=== PATIENT | female | born 1960 | race African-American/Black ===

== ENCOUNTER 2016-11-14 12:18 | Inpatient (IN) | payer OTHER ==
[2016-11-14] MEDS ORDERED: NITROGLYCERIN-D5W PMX 50 MG in DEXTROSE/WATER 1 250ML.BAG IV SCH (15:00)
[2016-11-14] MEDS ORDERED: MORPHINE SULFATE 2 MG/ML SYRINGE IVP PRN (15:36)
[2016-11-14] MEDS ORDERED: ONDANSETRON 4 MG/2 ML VIAL IVP PRN (15:39)
[2016-11-14] MEDS: HEPARIN SODIUM,PORCINE/D5W PMX 25,000 UNIT in DEXTROSE/WATER 1 500ML.BAG IV SCH (15:52)
[2016-11-14 15:57] LABS: Basophils # (A) 0.1 k/uL (0-0.2); Basophils % (A) 1 %; CH 24.3; CHCM 31.2; Eosinophils # (A) 0.6 k/uL (0-0.7); Eosinophils % (A) 10 %; HCT 47.1 % (34.0-46.0); HDW 2.74; HGB 14.5 gm/dL (11.4-16.0); Hypochromasia Moderate; Luc # (Auto) 0.21; Luc % (Auto) 3; Lymphocytes # (A) 1.8 k/uL (1.0-4.8); Lymphocytes % (A) 30 %; MCH 24.1 pg (25.0-35.0); MCHC 30.7 g/dL (31.0-37.0); MCV 78.5 fL (80.0-100.0); Mean Platelet Volume 7.7; Monocytes # (A) 0.4 k/uL (0-1.0); Monocytes % (A) 7 %; Neutrophils # (A) 3.1 k/uL (1.3-7.7); Neutrophils % (A) 50 %; RDW 14.8 % (11.5-15.5); WBC 6.1 k/uL (3.8-10.6); WBC (Perox) 6.07
[2016-11-14 16:10] LABS: Anion Gap 10 mmol/L; Blood Urea Nitrogen 11 mg/dL (7-17); Calcium 8.8 mg/dL (8.4-10.2); Carbon Dioxide 26 mmol/L (22-30); Chloride 104 mmol/L (98-107); Glucose 124 mg/dL (74-99); Magnesium 2.2 mg/dL (1.6-2.3); Non-African American GFR(MDRD) >60 (>60 ml/min/1.73 sqM); Potassium 3.4 mmol/L (3.5-5.1); Sodium 140 mmol/L (137-145)
[2016-11-14] MEDS ORDERED: Potassium Replacement Protocol 1 EACH MISC MISCELLANE PRN (16:43)
--- NOTE | 2016-11-14 16:49 | CT ---
EXAMINATION TYPE: CT brain wo con DATE OF EXAM: 11/14/2016 4:42 PM COMPARISON: NONE HISTORY: 56-year-old female transfer from another hospital with pulmonary embolism, became very restl ess and non verbal TECHNIQUE: Examination was done in axial plane without intravenous contrast. Coronal and sagittal r econstructions performed. CT DLP: 2297 mGycm Automated exposure control for dose reduction was used. FINDINGS: There is no evidence of acute intracranial hemorrhage, acute ischemic changes, mass, mass-effect, or extra-axial fluid collection. There is no effacement of cerebral sulci or basal subarachnoid cister ns. There is no hydrocephalus. There is no midline shift. Coffey-white matter distinction is preserv ed. Mild to moderate patchy periventricular and deep white matter hypodensities on both sides. Orbits and globes appear intact. Mild mucosal thickening ethmoid air cells. Rightward nasal septal de viation. Mastoid air cells well pneumatized. IMPRESSION: No acute intracranial abnormality seen. Patchy white matter hypodensities nonspecific, likely relatin g to chronic small vessel ischemic disease. If symptoms persist, follow-up CT or MRI.
--- NOTE | 2016-11-14 17:00 | CT ---
EXAMINATION TYPE: CT angio chest DATE OF EXAM: 11/14/2016 4:43 PM COMPARISON: NONE HISTORY: 56-year-old female transfer from another hospital with pulmonary embolism, became very restl ess and non verbal TECHNIQUE: Contiguous axial scanning of the chest performed with IV Contrast, patient injected with 1 00 mL of Omnipaque 350. Coronal/sagittal MIP reconstructions performed. CT DLP: 1656 mGycm Automated exposure control for dose reduction was used. FINDINGS: The heart is normal size without pericardial effusion. Coronary vessel calcifications are present in remarkable for coronary artery disease. If further information is provided that the patient had a reported left atrial thrombus. This area is closely examined. The left atrial appendage appears clear on the present exam. Aorta is normal caliber with conventional arch vessel branching anatomy. A few scattered borderline enlarged mediastinal lymph nodes measure up to 1 cm precarinal region and 9 mm AP window. There is satisfactory opacification of the pulmonary arterial system, there is respiratory motion deg rading assessment for pulmonary embolus. There is borderline to mildly enlarged caliber to the main r ight and the pulmonary arteries at 2.6 and 2.5 cm, respectively, suggesting underlying pulmonary shannan rial hypertension. No large central or lobar pulmonary embolus is seen. Allowing for respiratory motion, no definite emb olus to the segmental level. There is moderate diffuse bronchial wall thickening and moderate centrilobular and paraseptal edema. No consolidation or pleural effusion. Small hiatal hernia. Redemonstrated numerous cortical defects within both kidneys. Possible sequela of prior episodes of infection or vascular insults. Bones: Endplate spondylosis mid to lower thoracic spine. No osseous destructive process. IMPRESSION: 1. COPD WITH MODERATE EMPHYSEMA. EITHER SUPERIMPOSED ACUTE BRONCHITIS OR A PROMINENT COMPONENT OF CHR ONIC BRONCHITIS. POSSIBLE UNDERLYING PULMONARY ARTERY HYPERTENSION. 2. RESPIRATORY MOTION LIMITING ASSESSMENT FOR PULMONARY BULLOUS. NO LARGE CENTRAL OR LOBAR PULMONARY EMBOLUS. NO DEFINITE EMBOLUS TO THE SEGMENTAL LEVEL. 3. ADDITIONAL HISTORY IS PROVIDED OF LEFT ATRIAL THROMBUS. THIS AREA IS CLOSELY EXAMINED. THROMBUS IS NO LONGER SEEN IN THE LEFT ATRIAL APPENDAGE.
[2016-11-14] MEDS: POTASSIUM CHLORIDE 10 MEQ, LIDOCAINE 2% INJ 10 MG in SODIUM CHLORIDE 0.9% 100 ML IV SCH ×2 (19:03→20:14)
[2016-11-14] MEDS: SODIUM CHLORIDE 0.9% 1,000 ML IV SCH (19:04)
[2016-11-15 04:58] LABS: Basophils % (A) 1 %; CH 23.7; CHCM 30.2; Eosinophils # (A) 0.6 k/uL (0-0.7); Eosinophils % (A) 10 %; HDW 2.59; HGB 14.8 gm/dL (11.4-16.0); Hypochromasia Marked; Luc % (Auto) 3; Lymphocytes # (A) 1.7 k/uL (1.0-4.8); Lymphocytes % (A) 28 %; MCH 23.3 pg (25.0-35.0); MCHC 29.5 g/dL (31.0-37.0); MCV 78.8 fL (80.0-100.0); Mean Platelet Volume 6.3; Monocytes # (A) 0.4 k/uL (0-1.0); Monocytes % (A) 6 %; Neutrophils % (A) 51 %; RBC 6.34 m/uL (3.80-5.40); RDW 14.6 % (11.5-15.5); WBC 5.9 k/uL (3.8-10.6); WBC (Perox) 5.86
[2016-11-15 05:14] LABS: Anion Gap 7 mmol/L; Blood Urea Nitrogen 12 mg/dL (7-17); Calcium 8.8 mg/dL (8.4-10.2); Carbon Dioxide 24 mmol/L (22-30); Chloride 108 mmol/L (98-107); Glucose 102 mg/dL (74-99); Non-African American GFR(MDRD) >60 (>60 ml/min/1.73 sqM); Potassium 4.1 mmol/L (3.5-5.1); Sodium 139 mmol/L (137-145)
[2016-11-15] MEDS: HEPARIN SODIUM,PORCINE/D5W PMX 25,000 UNIT in DEXTROSE/WATER 1 500ML.BAG IV SCH ×2 (05:52→17:27)
[2016-11-15] MEDS ORDERED: NITROGLYCERIN SL TABS 0.4 MG TAB SUBLINGUAL PRN (08:17)
[2016-11-15] MEDS ORDERED: ASPIRIN 325 MG TAB PO STA (08:17)
[2016-11-15] MEDS ORDERED: SODIUM CHLORIDE 0.9% 1,000 ML in EMPTY BAG 1 BAG IV ONE (08:17)
[2016-11-15] MEDS ORDERED: ALPRAZolam 0.5 MG TAB PO PRN (08:17)
[2016-11-15] MEDS ORDERED: ATORVASTATIN 80 MG TAB PO STA (08:17)
[2016-11-15] MEDS ORDERED: ALPRAZolam 0.25 MG TAB PO PRN (08:17)
[2016-11-15] MEDS: PANTOPRAZOLE 40 MG/10 ML VIAL IV SCH (08:56)
[2016-11-15] MEDS ORDERED: ASPIRIN 81 MG CHEW PO SCH (09:00)
[2016-11-15] MEDS ORDERED: IV FLUID CONTINUATION 1,000 ML IV ONE (09:20)
[2016-11-15] MEDS: MIDAZOLAM 2 MG/2 ML VIAL IV ONE ×2 (09:38→09:42)
[2016-11-15] MEDS ORDERED: MIDAZOLAM 2 MG/2 ML VIAL ONE (09:38)
[2016-11-15] MEDS ORDERED: VERAPAMIL 2.5 MG/ML 2 ML AMP ONE (09:40)
[2016-11-15] MEDS ORDERED: LIDOCAINE 2% INJ 20 MG/ML (20 ML MDV) ONE (09:40)
[2016-11-15] MEDS ORDERED: SODIUM CHLORIDE 0.9% (PF) 10 ML VIAL ONE (09:40)
[2016-11-15] MEDS ORDERED: LIDOCAINE 2% INJ 20 MG/ML SQ ONE (09:44)
[2016-11-15] MEDS: VERAPAMIL SYRINGE (5 MG/10 ML) INTRAARTER ONE ×2 (09:46→10:24)
[2016-11-15] MEDS ORDERED: fentaNYL (PF) 50 MCG/ML 2 ML AMP ONE (09:56)
[2016-11-15] MEDS ORDERED: fentaNYL (PF) 50 MCG/ML 2 ML AMP IV ONE (09:58)
[2016-11-15] MEDS ORDERED: IOHEXOL 350 MG/ML 100 ML BOTTLE INJ ONE (10:27)
[2016-11-15] MEDS ORDERED: RX INFO: IV CONTRAST WAS GIVEN 1 EACH MISC MISCELLANE PRN (10:32)
[2016-11-15] MEDS ORDERED: SODIUM CHLORIDE 0.9% 1,000 ML IV SCH (10:45)
--- NOTE | 2016-11-15 12:25 | CC ---
DATE OF SERVICE: 11/15/2016 PERFORMING PHYSICIAN: Kyler Jauregui MD, parts expediter. PROCEDURE PERFORMED: Selective right and left coronary angiogram. INDICATION: This is a pleasant 56-year-old female patient who presented to the emergency room at [facility] with chest discomfort and was ruled in for acute non-ST elevation myocardial infarction. The troponin was quite elevated. The EKG showed diffuse ST segment depression consistent with ischemia. The decision was made toward the heart catheterization. APPROACH: Right radial artery. COMPLICATIONS: None. LEVEL OF SEDATION: Moderate with a sedation length of 45 minutes. PROCEDURE DESCRIPTION: After obtaining an informed consent, the patient was brought to the cardiac dental laboratory supervisor. Right radial artery was cannulated using micropuncture technique. The micropuncture wire passed easily, then I placed 6-Albanian sheath in the right radial artery. Subsequently I did selective right and left coronary angiogram. I did selective right coronary angiogram using JR4 catheter. Selective left coronary angiogram was performed using for the left circumflex JR4 catheter and for the LAD using multipurpose catheter. Both of the left circumflex and the LAD originates from the right coronary cusp. The procedure was completed without any complication. SELECTIVE CORONARY ANGIOGRAM: 1. The right coronary artery is a large-caliber vessel and super dominant vessel. The right coronary artery is angiographically normal. It distally bifurcates into PDA and PLV branches; both have mild disease only. 2. The left main ( ). 3. The left circumflex is originating from the right coronary cusp. The proximal left circumflex is angiographically normal and in the midportion gives rises into the first obtuse marginal branch, which appeared to have a lesion in the range of 50% to 60%. The distal left circumflex becomes small caliber vessel. 4. Left anterior descending artery. The left anterior descending artery is originating from the right coronary cusp as well. The LAD does not seem to have any significant disease. CONCLUSION: 1. Acute non-ST elevation myocardial infarction. 2. Mild nonobstructive disease involving a large dominant right coronary artery. 3. 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 4. 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 POSTPROCEDURE MANAGEMENT: Will be medical treatment.
[2016-11-15] MEDS: DILTIAZEM ORAL 30 MG TAB PO SCH ×3 (12:38→20:18)
[2016-11-15 14:18] LABS: Glucose,Whole Blood 145 mg/dL (75-99)
[2016-11-15] MEDS: SODIUM CHLORIDE 0.9% 1,000 ML IV SCH (17:25)
[2016-11-15] MEDS: APIXABAN 5 MG TAB PO SCH (20:18)
[2016-11-16 04:57] LABS: Basophils % (A) 1 %; CH 23.8; CHCM 30.4; Eosinophils # (A) 0.6 k/uL (0-0.7); Eosinophils % (A) 9 %; HCT 49.2 % (34.0-46.0); HDW 2.69; HGB 14.7 gm/dL (11.4-16.0); Hypochromasia Marked; Luc # (Auto) 0.26; Luc % (Auto) 4; Lymphocytes # (A) 1.4 k/uL (1.0-4.8); Lymphocytes % (A) 21 %; MCH 23.6 pg (25.0-35.0); MCHC 29.9 g/dL (31.0-37.0); MCV 78.9 fL (80.0-100.0); Mean Platelet Volume 7.8; Monocytes # (A) 0.5 k/uL (0-1.0); Monocytes % (A) 7 %; Neutrophils # (A) 3.9 k/uL (1.3-7.7); Neutrophils % (A) 59 %; RBC 6.23 m/uL (3.80-5.40); RDW 14.8 % (11.5-15.5); WBC 6.7 k/uL (3.8-10.6); WBC (Perox) 6.77
[2016-11-16 05:16] LABS: Anion Gap 8 mmol/L; Blood Urea Nitrogen 14 mg/dL (7-17); Calcium 8.9 mg/dL (8.4-10.2); Carbon Dioxide 23 mmol/L (22-30); Chloride 109 mmol/L (98-107); Glucose 98 mg/dL (74-99); Magnesium 1.8 mg/dL (1.6-2.3); Non-African American GFR(MDRD) >60 (>60 ml/min/1.73 sqM); Potassium 4.4 mmol/L (3.5-5.1); Sodium 140 mmol/L (137-145)
[2016-11-16] MEDS ORDERED: Magnesium Replacement Protocol 1 EACH MISC MISCELLANE PRN (05:29)
[2016-11-16] MEDS: MAGNESIUM SULFATE-D5W PMX 1 GM in DEXTROSE/WATER 1 100ML.BAG IVPB SCH ×2 (06:15→08:49)
[2016-11-16] MEDS: DILTIAZEM ORAL 30 MG TAB PO SCH (08:50)
[2016-11-16] MEDS: APIXABAN 5 MG TAB PO SCH ×2 (08:50→19:54)
[2016-11-16] MEDS: CLOPIDOGREL 75 MG TAB PO SCH ×2 (08:50→12:18)
[2016-11-16] MEDS: PANTOPRAZOLE 40 MG/10 ML VIAL IV SCH (08:51)
[2016-11-16] MEDS: IPRATROPIUM-ALBUTEROL 3 ML NEB INHALATION SCH ×2 (11:59→19:59)
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
[2016-11-16] MEDS: DILTIAZEM ORAL 60 MG TAB PO SCH ×2 (15:39→22:32)
--- NOTE | 2016-11-16 18:00 | P.PN ---
Subjective This is a 56-year-old female with history of coronary artery disease status post PTCA to the RCA in 2009 at [facility] initially presented to [facility] with complaints of chest pain. Patient was noted to be in atrial fibrillation with rapid ventricular rate, was started on IV heparin at that time. Chest pain was atypical. There was no positional ( ) hence with concern for aortic dissection. Patient was taken to an angiogram of the chest and abdomen. Patient was noted to have a left atrial thrombus, some diffuse changes in her kidneys as well. Patient was noted to have EKG changes. Hence, was transferred to [facility] for cardiac catheterization. Patient was initially started on Cardizem drip as well. Currently is rate controlled however in atrial fibrillation. Cardiac catheterization was done and was noted to have right coronary dominance with worsening of the left circ from the RCA. Patient was noted to have disease about 50 to 60% in the first obtuse marginal. Today patient was seen in the ICU. Denies having chest pain, headaches or blurry vision, nausea, vomiting, and no focal motor sensory deficits that are reported. Patient overnight after admission was noted to have some mental status, was rushed to a CT of the head as patient did have a left atrial thrombus on a previous angiogram. CT scan was negative except for chronic changes. 11/16/16 Denies cp, n/v, abdominal pain. Objective - Vital Signs Vital signs: Vital Signs Temp 99.1 F 11/16/16 16:24 Pulse 83 11/16/16 16:24 Resp 16 11/16/16 16:24 BP 134/63 11/16/16 16:24 Pulse Ox 97 11/16/16 16:24 Intake & Output 11/15/16 11/16/16 11/16/16 17:59 06:59 18:59 Intake Total 140 Output Total 350 Balance -210 Weight Intake: IV 40 0.9 nacl 40 Intake, IV Titration 100 Amount Heparin Sodium,Porcine/ D5w Pmx 25,000 unit In Dextrose/Water 1 500ml. bag @ 15.9 UNITS/KG/HR 37 .5 mls/hr IV .[id number] [facility] Rx#:[id number] Magnesium Sulfate-D5w Pmx 100 1 gm In Dextrose/Water 1 100ml.bag @ 100 mls/hr IVPB Q1H [facility] Rx#: [id number] Output: Urine 350 Other: Voiding Method Indwelling Catheter # Voids 1 # Bowel Movements 0 - Constitutional General appearance: Present: no acute distress - EENT Eyes: Present: EOMI, PERRLA - Neck Neck: Present: normal ROM. Absent: rigidity - Respiratory Respiratory: bilateral: CTA - Cardiovascular Rhythm: irregularly irregular Abnormal Heart Sounds: Absent: systolic murmur - Gastrointestinal General gastrointestinal: Present: normal bowel sounds, soft. Absent: organomegaly, tenderness - Integumentary Integumentary: Present: normal - Neurologic Neurologic: Present: CNII-XII intact. Absent: focal deficits - Musculoskeletal Musculoskeletal: Present: strength equal bilaterally - Psychiatric Psychiatric: Present: A&O x's 3, appropriate affect - Labs CBC & Chem 7: 11/16/16 04:32 11/16/16 04:32 Labs: Abnormal Lab Results - Last 24 Hours (Table) 11/16/16 11/16/16 Range/Units 04:32 04:32 RBC 6.23 H (3.80-5.40) m/uL Hct 49.2 H (34.0-46.0) % MCV 78.9 L (80.0-100.0) fL MCH 23.6 L (25.0-35.0) pg MCHC 29.9 L (31.0-37.0) g/dL Chloride 109 H (98-107) mmol/L Assessment and Plan Plan: ASSESSMENT AND PLAN: 1. Non-ST elevation MN. 2. New onset atrial fibrillation with rapid ventricular rate present on admission. 3. Polysubstance use. 4. History of coronary artery disease. 5. Ongoing tobacco use. 6. Accelerated hypertension, was present on admission. 7. Left atrial thrombus. 8. Hypokalemia. Plan Cardizem is increased to 60 mg tid Will need case management to setup eliquis pricing Likely dc home in the next 24 hrs Cessation of drugs discussed Medication compliance Continue plavix.
[2016-11-16] MEDS ORDERED: ATORVASTATIN 80 MG TAB PO SCH (21:00)
[2016-11-17 01:00] VITALS: RESP 18
[2016-11-17 06:53] LABS: Basophils # (A) 0.1 k/uL (0-0.2); Basophils % (A) 1 %; CHCM 31.4; Eosinophils # (A) 0.9 k/uL (0-0.7); Eosinophils % (A) 13 %; HCT 50.4 % (34.0-46.0); HDW 2.71; HGB 15.3 gm/dL (11.4-16.0); Hypochromasia Slight; Luc % (Auto) 3; Lymphocytes # (A) 1.5 k/uL (1.0-4.8); Lymphocytes % (A) 22 %; MCH 23.3 pg (25.0-35.0); MCHC 30.3 g/dL (31.0-37.0); MCV 77.1 fL (80.0-100.0); Mean Platelet Volume 7.9; Monocytes # (A) 0.4 k/uL (0-1.0); Monocytes % (A) 7 %; Neutrophils # (A) 3.6 k/uL (1.3-7.7); Neutrophils % (A) 54 %; RBC 6.55 m/uL (3.80-5.40); RDW 14.7 % (11.5-15.5); WBC 6.6 k/uL (3.8-10.6); WBC (Perox) 6.55
[2016-11-17 07:09] LABS: Anion Gap 11 mmol/L; Calcium 9.1 mg/dL (8.4-10.2); Carbon Dioxide 24 mmol/L (22-30); Chloride 107 mmol/L (98-107); Glucose 90 mg/dL (74-99); Non-African American GFR(MDRD) >60 (>60 ml/min/1.73 sqM); Sodium 142 mmol/L (137-145)
[2016-11-17 07:18] LABS: Blood Urea Nitrogen 14 mg/dL (7-17); Potassium 4.7 mmol/L (3.5-5.1)
[2016-11-17] MEDS: IPRATROPIUM-ALBUTEROL 3 ML NEB INHALATION SCH ×2 (07:34→13:00)
[2016-11-17] MEDS: PANTOPRAZOLE 40 MG/10 ML VIAL IV SCH (08:28)
[2016-11-17] MEDS: APIXABAN 5 MG TAB PO SCH (08:29)
[2016-11-17] MEDS: DILTIAZEM ORAL 60 MG TAB PO SCH (08:29)
[2016-11-17] MEDS: CLOPIDOGREL 75 MG TAB PO SCH (08:29)
--- NOTE | 2016-11-17 10:29 | ECHOF ---
Referral Reason:mi MEASUREMENTS -------- HEIGHT: 185.4 cm WEIGHT: 122.5 kg BP: 122/76 RVIDd: 2.5 cm (< 3.3) IVSd: 1.3 cm (0.6 - 1.1) LVIDd: 5.0 cm (3.9 - 5.3) LVPWd: 1.2 cm (0.6 - 1.1) IVSs: 1.7 cm LVIDs: 3.9 cm LVPWs: 1.8 cm LA Diam: 3.7 cm (2.7 - 3.8) LAESV Index (A-L): 17.31 ml/m Ao Diam: 3.5 cm (2.0 - 3.7) AV Cusp: 2.6 cm (1.5 - 2.6) MV EXCURSION: 15.271 mm (> 18.000) MV EF SLOPE: 104 mm/s (70 - 150) EPSS: 1.5 cm AV maxP.09 mmHg AV meanP.70 mmHg FINDINGS -------- The rhythm appears to be atrial flutter. This was a technically adequate study. The left ventricular size is normal. There is mild concentric left ventricular hypertrophy. Overall left ventricular systolic function is mild-moderately impaired with, an EF between 40 - 45 %. The right ventricle is normal in size and function. Normal LA size by volume 22+/-6 ml/m2. The right atrium is normal in size. The aortic valve is trileaflet and appears structurally normal. There is trace mitral regurgitation. Trace tricuspid regurgitation present. Trace/mild (physiologic) pulmonic regurgitation. The aortic root size is normal. Normal inferior vena cava with normal inspiratory collapse consistent with estimated right atrial pressure of 5 mmHg. There is no pericardial effusion. CONCLUSIONS -------- 1. The rhythm appears to be atrial flutter. 2. Trace tricuspid regurgitation present. 3. Trace/mild (physiologic) pulmonic regurgitation. 4. The aortic root size is normal. 5. Normal inferior vena cava with normal inspiratory collapse consistent with estimated right atrial pressure of 5 mmHg. 6. There is no pericardial effusion. 7. This was a technically adequate study. 8. The left ventricular size is normal. 9. There is mild concentric left ventricular hypertrophy. 10. Overall left ventricular systolic function is mild-moderately impaired with, an EF between 40 - 45 %. 11. The right ventricle is normal in size and function. 12. Normal LA size by volume 22+/-6 ml/m2. 13. The aortic valve is trileaflet and appears structurally normal. 14. There is trace mitral regurgitation. THEATER USHER: Monique Leblanc RDCS
[2016-11-17 14:14] VITALS: PULSE 76
[2016-11-17 14:16] VITALS: BP 107/63; TEMP 98.3
--- NOTE | 2016-11-17 15:46 | P.PN ---
Subjective Principal diagnosis: Non-STEMI This is an -Fij[place] 56-year-old patient who was transferred here from [facility]. She presented there with chest discomfort and ruled in for non-ST elevation MO. The patient was transferred here to undergo cardiac catheterization. Cardiac catheterization revealed mild nonobstructive disease involving the large dominant right coronary artery. 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 Echocardiogram with Doppler study was performed which revealed an ejection fraction of 40-45%. Patient does have a history of prior PTCA of the RCA in 2009, history of crack cocaine use, ongoing tobacco use, marijuana use, and hypertension. Patient was seen and examined today, denies any chest discomfort, hemodynamically stable. Objective - Vital Signs Vital signs: Vital Signs Temp 98.3 F 11/17/16 12:00 Pulse 76 11/17/16 12:00 Resp 18 11/17/16 12:00 BP 107/63 11/17/16 12:00 Pulse Ox 97 11/17/16 12:00 Intake & Output 11/16/16 11/17/16 11/17/16 18:59 06:59 18:59 Intake Total 376 300 120 Output Total 350 Balance 26 300 120 Intake: IV 40 0.9 nacl 40 Intake, IV Titration 100 Amount Magnesium Sulfate-D5w Pmx 100 1 gm In Dextrose/Water 1 100ml.bag @ 100 mls/hr IVPB Q1H [facility] Rx#: [id number] Oral 236 300 120 Output: Urine 350 Other: Voiding Method Indwelling Catheter Toilet Toilet # Voids 0 2 0 # Bowel Movements 0 - Exam PHYSICAL EXAMINATION: HEENT: Head is atraumatic, normocephalic. Pupils equal, round. Neck is supple. There is no elevated jugular venous pressure. HEART EXAMINATION: Heart S1, S2 systolic murmur heard . CHEST EXAMINATION: Lungs are clear to auscultation and precussion. No chest wall tenderness is noted on palpation or with deep breathing. ABDOMEN: Soft, nontender. Bowel sounds are heard. No organomegaly noted. EXTREMITIES: 2+ peripheral pulses with no evidence of peripheral edema and no calf tenderness noted. Right radial site clean and dry good distal pulse. NEUROLOGIC patient is awake, alert and oriented -3. . - Labs CBC & Chem 7: 03/13/17 06:11 11/17/16 06:07 Labs: Abnormal Lab Results - Last 24 Hours (Table) 11/17/16 Range/Units 06:11 RBC 6.55 H (3.80-5.40) m/uL Hct 50.4 H (34.0-46.0) % MCV 77.1 L (80.0-100.0) fL MCH 23.3 L (25.0-35.0) pg MCHC 30.3 L (31.0-37.0) g/dL Eosinophils # 0.9 H (0-0.7) k/uL Assessment and Plan (1) Paroxysmal a-fib Status: Acute (2) CAD (coronary artery disease) Status: Acute (3) S/P cardiac cath Status: Acute (4) Nicotine dependence Status: Acute (5) HTN (hypertension) Status: Acute (6) Left atrial thrombus Status: Acute (7) Hypokalemia Status: Acute (8) NSTEMI (non-ST elevated myocardial infarction) Status: Acute Plan: Patient will be discharged home today. She has been advised regarding the importance of taking all her medications on a regular basis. Follow-up appointment has been made. DNP note has been reviewed, I agree with a documented findings and plan of care. Patient was seen and examined.
[2016-11-18] MEDS ORDERED: PANTOPRAZOLE 40 MG TABLET PO SCH (07:30)
--- NOTE | 2016-12-10 15:01 | P.DS ---
Providers Date of admission: 11/14/16 15:01 Attending physician: Pascale Salguero Consults: 11/14/16 15:25 Consult Physician Routine Consulting Provider: Kyler Jauregui Consult Reason/Comments: STEMI Do you want consulting provider notified?: Already Contacted Primary care physician: Stated None Hospital Course: This is a 56-year-old female with history of coronary artery disease status post PTCA to the RCA in [address] [facility] initially presented to [facility] with complaints of chest pain. Patient was noted to be in atrial fibrillation with rapid ventricular rate, was started on IV heparin at that time. Chest pain was atypical. There was no positional ( ) hence with concern for aortic dissection. Patient was taken to an angiogram of the chest and abdomen. Patient was noted to have a left atrial thrombus, some diffuse changes in her kidneys as well. Patient was noted to have EKG changes. Hence, was transferred to [facility] for cardiac catheterization. Patient was initially started on Cardizem drip as well. Currently is rate controlled however in atrial fibrillation. Cardiac catheterization was done and was noted to have right coronary dominance with worsening of the left circ from the RCA. Patient was noted to have disease about 50 to 60% in the first obtuse marginal. Today patient was seen in the ICU. Denies having chest pain, headaches or blurry vision, nausea, vomiting, and no focal motor sensory deficits that are reported. Patient overnight after admission was noted to have some mental status, was rushed to a CT of the head as patient did have a left atrial thrombus on a previous angiogram. CT scan was negative except for chronic changes. 11/16/16 Denies cp, n/v, abdominal pain. - Constitutional General appearance: Present: no acute distress - EENT Eyes: Present: EOMI, PERRLA - Neck Neck: Present: normal ROM. Absent: rigidity - Respiratory Respiratory: bilateral: CTA - Cardiovascular Rhythm: irregularly irregular Abnormal Heart Sounds: Absent: systolic murmur - Gastrointestinal General gastrointestinal: Present: normal bowel sounds, soft. Absent: organomegaly, tenderness - Integumentary Integumentary: Present: normal - Neurologic Neurologic: Present: CNII-XII intact. Absent: focal deficits - Musculoskeletal Musculoskeletal: Present: strength equal bilaterally - Psychiatric Psychiatric: Present: A&O x's 3, appropriate affect Assessment and Plan Plan: ASSESSMENT AND PLAN: 1. Non-ST elevation NH. 2. New onset atrial fibrillation with rapid ventricular rate present on admission. 3. Polysubstance use. 4. History of coronary artery disease. 5. Ongoing tobacco use. 6. Accelerated hypertension, was present on admission. 7. Left atrial thrombus. 8. Hypokalemia. . Plan - Discharge Summary New Discharge Prescriptions: Apixaban [Eliquis] 5 mg PO BID #60 tab Atorvastatin [Lipitor] 80 mg PO HS #30 tab Diltiazem Cd [Cardizem Cd] 180 mg PO DAILY #30 cap.er.24h Discharge Medication List Aspirin 325 mg PO DAILY 11/14/16 [History] Clopidogrel Bisulfate [Plavix] 75 mg PO DAILY 11/14/16 [History] ARIPiprazole [Abilify] 5 mg PO DAILY 11/17/16 [History] Albuterol Inhaler [Ventolin Hfa Inhaler] 2 puff INHALATION RT-Q6H PRN 11/17/16 [ History] Albuterol Nebulized [Ventolin Nebulized] 2.5 mg INHALATION RT-QID PRN 11/17/16 [ History] Apixaban [Eliquis] 5 mg PO BID #60 tab 11/17/16 [Rx] Atorvastatin [Lipitor] 80 mg PO HS #30 tab 11/17/16 [Rx] Diltiazem Cd [Cardizem Cd] 180 mg PO DAILY #30 cap.er.24h 11/17/16 [Rx] Isosorbide Dinitrate 30 mg PO TID 11/17/16 [History] Methocarbamol [Robaxin] 750 mg PO TID 11/17/16 [History] Mometasone/Formoterol [Dulera 200 Mcg/5 Mcg Inhaler] 2 puff INHALATION RT-BID [History] Montelukast [Singulair] 10 mg PO HS 11/17/16 [History] Pregabalin [Lyrica] 300 mg PO BID 11/17/16 [History] Follow up Appointment(s)/Referral(s): Kyler Jauregui MD [STAFF PHYSICIAN] - 11/25/16 1:45 pm Patient Instructions/Handouts: After Heart Catheterization - Tax Commissioner Discharge Disposition: HOME SELF-CARE
== END 2016-11-17 16:52 | disposition home or self-care (01) | DRG 282 ==
LOC: 6ICU 15:01 → 6SEL 11-16 15:53
PROVIDERS: ADMIT Hospitalist; ATTEND Hospitalist
PROC: B2111ZZ Fluoroscopy of Multiple Coronary Arteries using Low Osmolar Contrast (ICD-10-PCS; principal; 2016-11-15 09:20)
DX: I21.4 Non-ST elevation (NSTEMI) myocardial infarction (principal); I10 Essential (primary) hypertension; I48.0 Paroxysmal atrial fibrillation; E87.6 Hypokalemia; J45.909 Unspecified asthma, uncomplicated; R41.82 Altered mental status, unspecified; I51.3 Intracardiac thrombosis, not elsewhere classified; I25.10 Atherosclerotic heart disease of native coronary artery without angina pectoris; F19.90 Other psychoactive substance use, unspecified, uncomplicated; R93.421 Abnormal radiologic findings on diagnostic imaging of right kidney; R93.422 Abnormal radiologic findings on diagnostic imaging of left kidney; F17.210 Nicotine dependence, cigarettes, uncomplicated; R29.702 NIHSS score 2; Z79.82 Long term (current) use of aspirin; Z88.8 Allergy status to other drugs, medicaments and biological substances; Z87.01 Personal history of pneumonia (recurrent); Z87.81 Personal history of (healed) traumatic fracture; Z86.19 Personal history of other infectious and parasitic diseases; Z87.09 Personal history of other diseases of the respiratory system; Z87.828 Personal history of other (healed) physical injury and trauma; Z71.51 Drug abuse counseling and surveillance of drug abuser; Z79.02 Long term (current) use of antithrombotics/antiplatelets; Z79.899 Other long term (current) drug therapy; Z95.5 Presence of coronary angioplasty implant and graft
CPT/HCPCS: 70450; 71275; 80048; 83735; 85025; 85730; 93306; 93454; 94640

== ENCOUNTER → 2017-01-23 | Day surgery (SDC) | payer OTHER ==
[2017-01-20 15:43] VITALS: BMI 31.8
[~2017-01-23] MED LIST: LACTATED RINGERS 1,000 ML IV SCH; SODIUM CHLORIDE 0.9% 1,000 ML IV SCH
[2017-01-23 06:56] VITALS: BP 128/69; PULSE 50; RESP 18; TEMP 97.7
== END ==
LOC: CATHCVL 06:15
PROVIDERS: ATTEND Internal Medicine Interventional Cardiology
DX: I25.10 Atherosclerotic heart disease of native coronary artery without angina pectoris (principal); I10 Essential (primary) hypertension; I48.0 Paroxysmal atrial fibrillation; Z79.01 Long term (current) use of anticoagulants; E78.5 Hyperlipidemia, unspecified
CPT/HCPCS: 93005

== ENCOUNTER 2020-04-19 13:25 | Observation (INO) | payer OTHER ==
[2020-04-19] MEDS ORDERED: DEXAMETHASONE SOD PHOSPHATE 10 MG/ML 1 ML VIAL IV STA (13:46)
[2020-04-19] MEDS ORDERED: SODIUM CHLORIDE 0.9% 500 ML 500 ML IV STA ×2 (13:46→14:20)
[2020-04-19] MEDS ORDERED: IPRATROPIUM 0.5 MG/2.5 ML NEBU INHALATION STA (13:51)
[2020-04-19] MEDS ORDERED: ALBUTEROL NEBULIZED 2.5 MG/3 ML INHALATION STA (13:51)
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
--- NOTE | 2020-04-19 14:15 | XR ---
EXAMINATION TYPE: XR chest 1V portable DATE OF EXAM: 04/19/2020 CLINICAL HISTORY: Dysrhythmia TECHNIQUE: Portable upright view of the chest obtained COMPARISON: CTA chest 11/14/2016 FINDINGS: Left-sided dual-chamber pacemaker. The lungs are hyperexpanded with coarsened interstitial markings and emphysematous changes. There are redemonstrated blebs and bulla of the peripheral lungs , most notably of the right lung apex. The cardiomediastinal silhouette is within normal limits for s ize. Pulmonary vasculature is normal. There is no focal air space opacity, pleural effusion, or pneum othorax seen. The osseous structures are intact. IMPRESSION: 1. Emphysematous changes including biapical blebs and bulla. 2. No acute cardiopulmonary process.
[2020-04-19 14:26] LABS: Partial Thromboplastin Time 25.7 sec (22.0-30.0); Prothrombin Time 10.6 sec (9.0-12.0)
[2020-04-19 14:27] LABS: Albumin 4.3 g/dL (3.5-5.0); Calcium 9.9 mg/dL (8.4-10.2); Magnesium 1.8 mg/dL (1.6-2.3); Potassium 4.5 mmol/L (3.5-5.1); Total Bilirubin 0.7 mg/dL (0.2-1.3); Total Protein 7.2 g/dL (6.3-8.2)
[2020-04-19 14:30] LABS: Basophils # (A) 0.1 k/uL (0-0.2); Basophils % (A) 1 %; Eosinophils # (A) 0.3 k/uL (0-0.7); Eosinophils % (A) 3 %; HCT 52.7 % (34.0-46.0); HGB 15.9 gm/dL (11.4-16.0); Hypochromasia Moderate; Lymphocytes # (A) 1.2 k/uL (1.0-4.8); Lymphocytes % (A) 13 %; MCH 23.6 pg (25.0-35.0); MCHC 30.1 g/dL (31.0-37.0); MCV 78.6 fL (80.0-100.0); Mean Platelet Volume 8.9; Monocytes # (A) 0.4 k/uL (0-1.0); Monocytes % (A) 5 %; Neutrophils # (A) 6.8 k/uL (1.3-7.7); Neutrophils % (A) 77 %; Platelet Count 239 k/uL (150-450); RDW 15.8 % (11.5-15.5); WBC 8.9 k/uL (3.8-10.6)
[2020-04-19] MEDS ORDERED: HEPARIN SODIUM,PORCINE 5,000 UNIT/ML 1 ML VIAL IV ONE (14:37)
[2020-04-19] MEDS ORDERED: HEPARIN SODIUM,PORCINE 5,000 UNIT/ML 1 ML VIAL IV PRN (14:37)
[2020-04-19] MEDS ORDERED: HEPARIN SOD,PORK IN 0.45% NACL 25,000 UNIT in 0.45% NACL 1 250ML.BAG IV SCH (14:45)
[2020-04-19] MEDS ORDERED: AZITHROMYCIN 500 MG TAB PO ONE (15:00)
[2020-04-19] MEDS ORDERED: SODIUM CHLORIDE 0.9% 1,000 ML IV STA (15:02)
[2020-04-19] MEDS ORDERED: ACETAMINOPHEN 1300 MG PO PRN (17:45)
[2020-04-19] MEDS ORDERED: ACETAMINOPHEN TAB 325 MG TAB PO PRN (17:55)
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
[2020-04-19] MEDS: IPRATROPIUM-ALBUTEROL 3 ML NEB INHALATION SCH ×2 (19:47→19:49)
[2020-04-19] MEDS: PREGABALIN 75 MG CAP PO SCH (20:30)
[2020-04-19] MEDS ORDERED: BACLOFEN 10 MG TAB PO SCH (22:00)
[2020-04-20 05:43] LABS: Calcium 8.7 mg/dL (8.4-10.2); Potassium 4.5 mmol/L (3.5-5.1)
[2020-04-20] MEDS: IPRATROPIUM-ALBUTEROL 3 ML NEB INHALATION SCH ×4 (08:31→20:14)
[2020-04-20] MEDS ORDERED: NON FORMULARY DRUG (Umeclidinium Bromide [Incruse Ellipta] 1 PUFF) INHALATION SCH (09:00)
[2020-04-20] MEDS: ARIPiprazole 10 MG TAB PO SCH (09:39)
[2020-04-20] MEDS: PREGABALIN 75 MG CAP PO SCH ×2 (09:39→20:12)
[2020-04-20] MEDS: PANTOPRAZOLE 40 MG TABLET PO SCH (09:39)
[2020-04-20] MEDS: FLUoxetine HCL 20 MG CAP PO SCH (09:39)
[2020-04-20] MEDS: predniSONE 20 MG TAB PO SCH (09:39)
[2020-04-20] MEDS: METOPROLOL SUCCINATE (ER) 100 MG TAB.ER.24H PO SCH (09:39)
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
[2020-04-20] MEDS: APIXABAN 5 MG TAB PO SCH ×2 (10:00→20:13)
--- NOTE | 2020-04-20 10:02 | ECHOF ---
Referral Reason:a-fib MEASUREMENTS -------- HEIGHT: 182.9 cm WEIGHT: 101.6 kg BP: RVIDd: 3.8 cm (< 3.3) IVSd: 1.3 cm (0.6 - 1.1) LVIDd: 4.9 cm (3.9 - 5.3) LVPWd: 1.6 cm (0.6 - 1.1) EDV(Teich): 115 ml IVSs: 1.9 cm LVIDs: 3.7 cm LVPWs: 1.7 cm %IVS Thck: 44 % ESV(Teich): 57 ml EF(Teich): 50 % %FS: 26 % SV(Teich): 58 ml LA Diam: 4.2 cm (2.7 - 3.8) LALs A4C: 5.2 cm LAAs A4C: 18.2 cm LAESV A-L A4C: 54 ml LAESV MOD A4C: 50 ml LALs A2C: 5.2 cm LAAs A2C: 18.4 cm LAESV A-L A2C: 55 ml LAESV MOD A2C: 52 ml LAESV(A-L): 55 ml LAESV Index (A-L): 24.47 ml/m Ao Diam: 3.1 cm (2.0 - 3.7) AV Cusp: 2.0 cm (1.5 - 2.6) MV EXCURSION: 21.085 mm (> 18.000) MV EF SLOPE: 80 mm/s (70 - 150) EPSS: 0.7 cm MV E Gus: 0.49 m/s MV DecT: 248 ms MV Dec [place]: 2.0 m/s MV A Gus: 0.38 m/s MV E/A Ratio: 1.30 MV PHT: 72 ms TR Vmax: 1.63 m/s TR maxP.61 mmHg RAP: 5.00 mmHg RVSP: 15.61 mmHg FINDINGS -------- Paced rhythm. This was a technically good study. LV size, wall thickness and systolic function are normal, with an EF greater than 55%. The left attila tricular size is normal. The right ventricle is normal in size. The left atrium is mildly dilated. The right atrial size is normal. The aortic valve is trileaflet, and appears structurally normal. No aortic stenosis or regurgitation. Mild mitral regurgitation is present. Mild tricuspid regurgitation present. Right ventricular systolic pressure is normal at < 35 mmHg. There is no pulmonic regurgitation present. The aortic root size is normal. There is no pericardial effusion. CONCLUSIONS -------- 1. LV size, wall thickness and systolic function are normal, with an EF greater than 55%. 2. The left ventricular size is normal. 3. The right ventricle is normal in size. 4. The left atrium is mildly dilated. 5. The right atrial size is normal. 6. Mild mitral regurgitation is present. 7. Mild tricuspid regurgitation present. 8. Right ventricular systolic pressure is normal at < 35 mmHg. [employer] INSTALLER: Judi Andres RDCS
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
[2020-04-20] MEDS: AZITHROMYCIN 500 MG TAB PO SCH (16:19)
[2020-04-20] MEDS: ATORVASTATIN 80 MG TAB PO SCH (20:13)
--- NOTE | 2020-04-21 00:37 | P.PN ---
Subjective Progress Note Date: 04/20/20 Mrs. Mcdaniels is a 59-year-old female with a past medical history of congestive heart failure, pacemaker, paroxysmal atrial fibrillation, hypertension, hyperlipidemia, cognitive impairment sent to the hospital from Dr. Guzman's office. Patient had a visit at Dr. Guzman's clinic for difficulty in breat ophelia that has been going on for the past couple of days. She states that she was feeling more short of breath, having cough that is nonproductive in nature along with some left-sided chest discomfort. Patient has history of atrial fibrillation but does not take any anticoagulation. She was prescribed that are done and is in the past, that she does not take any more. In the ER patient had blood pressure of 79/33 with a respirator 26 and heart rate 113 EKG showing paced rhythm with heart rate of 60 and chest x-ray showing emphysema. She was given steroids and breathing treatments and admitted for further workup. As the patient has history of A. fib which was more than 48 hours, there is a concern for cardiac thrombus. The patient was started on heparin drip and admitted with cardiology and pulmonary consults. On 04/20/2020-patient is comfortably sleeping in the bed. Appears to be no acute distress. Overnight no acute issues reported by nursing staff. Patient states that her difficulty in breathing is better. Patient denies having any palpitations or chest discomfort. On review of systems she denies having any fevers chills or rigors. No abdominal pain nausea vomiting or diarrhea. No dysuria or hematuria. On reviewing the vitals patient's temperature 98.3, heart rate 76, respiratory rate 18 saturating at 96% on 3 L of oxygen. Patient's labs from this morning showed sodium 136, potassium 4.5 BUN 26 creatinine 1.15. Active Medications Acetaminophen (Tylenol Tab) 650 mg PO Q6HR PRN PRN Reason: Fever and/ or Pain Albuterol/Ipratropium (Duoneb 0.5 Mg-3 Mg/3 Ml Soln) 3 ml INHALATION RT-QID [facility] Last Admin: 04/20/20 20:14 Dose: 3 ml Documented by: Apixaban (Eliquis) 5 mg PO BID [facility] Last Admin: 04/20/20 20:13 Dose: 5 mg Documented by: Aripiprazole (Abilify) 10 mg PO DAILY [facility] Last Admin: 04/20/20 09:39 Dose: 10 mg Documented by: Atorvastatin Calcium (Lipitor) 80 mg PO HS [facility] Last Admin: 04/20/20 20:13 Dose: 80 mg Documented by: Azithromycin (Zithromax) 500 mg PO DAILY@1500 [facility] Last Admin: 04/20/20 16:19 Dose: 500 mg Documented by: Fluoxetine HCl (Prozac) 20 mg PO DAILY [facility] Last Admin: 04/20/20 09:39 Dose: 20 mg Documented by: Metoprolol Succinate (Toprol Xl) 100 mg PO DAILY [facility] Last Admin: 04/20/20 09:39 Dose: 100 mg Documented by: Pantoprazole Sodium (Protonix) 40 mg PO DAILY [facility] Last Admin: 04/20/20 09:39 Dose: 40 mg Documented by: Prednisone () 40 mg PO DAILY [facility] Last Admin: 04/20/20 09:39 Dose: 40 mg Documented by: Pregabalin (Lyrica) 150 mg PO BID [facility] Last Admin: 04/20/20 20:12 Dose: 150 mg Documented by: Objective - Vital Signs Vital signs: Vital Signs Temp 98.5 F 04/20/20 08:30 Pulse 74 04/20/20 13:19 Resp 19 04/20/20 12:00 BP 108/67 04/20/20 12:00 Pulse Ox 96 04/20/20 12:00 Intake & Output 04/19/20 04/20/20 04/20/20 18:59 06:59 18:59 Intake Total 540 720 Output Total 500 Balance 540 220 Weight 99.79 kg 102 kg Intake: Oral 540 720 Output: Urine 500 Other: Voiding Method Toilet # Voids 1 # Bowel Movements 1 1 - Exam PHYSICAL EXAMINATION: GENERAL: Speech is stuttered, appears to be no acute distress. HEENT: Pupils are round and equally reacting to light. EOMI. no scleral icterus. No conjunctival pallor. Normocephalic, atraumatic. CARDIOVASCULAR: Paced rhythm S 1 , S 2 heard . No additional sounds. PULMONARY: Diminished breath sounds bilaterally at the lower lung garner. No wheezing. ABDOMEN: Soft, nontender, nondistended, normoactive bowel sounds. No palpable organomegaly. MUSCULOSKELETAL: No joint swelling or deformity EXTREMITIES: No cyanosis, clubbing, mild pedal edema. NEUROLOGICAL: Alert awake oriented 2-3, Gross neurological examination did not reveal any focal deficits. SKIN: No rash - Labs CBC & Chem 7: 04/19/20 13:56 04/20/20 05:14 Labs: Abnormal Lab Results - Last 24 Hours (Table) 04/19/20 04/20/20 04/20/20 Range/Units 22:16 05:14 05:14 APTT 53.3 H 51.1 H (22.0-30.0) sec Sodium 136 L (137-145) mmol/L Chloride 109 H (98-107) mmol/L Carbon Dioxide 21 L (22-30) mmol/L BUN 26 H (7-17) mg/dL Creatinine 1.15 H (0.52-1.04) mg/dL Glucose 131 H (74-99) mg/dL Assessment and Plan Assessment: ASSESSMENT A. fib with RVR Acute COPD exacerbation Hypotension - probably due to A. fib Acute kidney injury Systolic congestive heart failure with ejection fraction of 40-45% Pacemaker in place History of atrial fibrillation not on anticoagulation Hypertension Hyperlipidemia Dysarthria Cognitive impairment History of depression Nicotine dependence History of substance abuse PLAN: Patient is started on a heparin drip for concerns of atrial thrombus, changed to Eliquis by Cardiology today. Patient has been started on breathing treatments and steroids along with azithromycin for COPD exacerbation. Echocardiogram showing EF > 55 %. Patient has aspirin listed as a home medication. This does not need to be resumed and should be discontinued at discharge as per Cardiology recommendations. Further recommendations to follow depending on the progress of the patient.
[2020-04-21] MEDS: IPRATROPIUM-ALBUTEROL 3 ML NEB INHALATION SCH ×4 (08:24→21:04)
[2020-04-21] MEDS: FLUoxetine HCL 20 MG CAP PO SCH (09:28)
[2020-04-21] MEDS: PANTOPRAZOLE 40 MG TABLET PO SCH (09:28)
[2020-04-21] MEDS: APIXABAN 5 MG TAB PO SCH ×2 (09:28→20:34)
[2020-04-21] MEDS: ARIPiprazole 10 MG TAB PO SCH (09:28)
[2020-04-21] MEDS: predniSONE 20 MG TAB PO SCH (09:28)
[2020-04-21] MEDS: PREGABALIN 75 MG CAP PO SCH ×2 (09:28→20:34)
[2020-04-21] MEDS: METOPROLOL SUCCINATE (ER) 100 MG TAB.ER.24H PO SCH (09:28)
[2020-04-21] MEDS: AZITHROMYCIN 500 MG TAB PO SCH (13:09)
--- NOTE | 2020-04-21 13:39 | P.PN ---
Subjective Progress Note Date: 04/21/20 this is a pleasant 59-year-old female patient who follows with Dr. Abad in the office. He has a history of atrial fibrillation, nonobstructive CAD, previous pacemaker implantation, COPD, smoking and drug abuse. presented to the emergency department after being evaluated by a window shade ring sewer for shortness of breath. She was found to be in atrial fibrillation with rapid ventricular response. She has since converted to sinus mechanism. Her oral anticoagulation has been resumed adequate dose.she is maintaining sinus rhythm. Echocardiogram with Doppler study showed normal LV systolic function with mild MR and mild TR.patient was seen and examined this morning with significantly impaired. She overall states that she's feeling better. She feels her breathing has improved. Objective - Vital Signs Vital signs: Vital Signs Temp 98.2 F 04/21/20 08:00 Pulse 64 04/21/20 08:00 Resp 20 04/21/20 08:00 BP 116/72 04/21/20 08:00 Pulse Ox 94 L 04/21/20 08:00 Intake & Output 04/20/20 04/21/20 04/21/20 18:59 06:59 18:59 Intake Total 1200 302 Output Total 500 Balance 700 302 Weight 103 kg Intake: Oral 1200 302 Output: Urine 500 Other: Voiding Method Toilet # Voids 2 1 2 # Bowel Movements 1 - Exam PHYSICAL EXAMINATION: HEENT: [Head is atraumatic, normocephalic. Pupils equal, round. Neck is supple. There is no elevated jugular venous pressure.] HEART EXAMINATION: [Heart sounds regular, S1 and S2 with a soft systolic murmur.] CHEST EXAMINATION:[ Lungs reveal diffuse wheezing. No chest wall tenderness is noted on palpation or with deep breathing.] ABDOMEN: [ Soft, nontender. Bowel sounds are heard. No organomegaly noted]. EXTREMITIES:[ 2+ peripheral pulses with evidence oftrace peripheral edema and no calf tenderness noted]. NEUROLOGIC [patient is awake, alert and oriented x3.] . - Labs CBC & Chem 7: 04/19/20 13:56 04/20/20 05:14 Assessment and Plan Assessment: 1. Atrial fibrillation with RVR, history of PPM in 2019 in [place] 2. COPD exacerbation 3. Acute kidney injury 4. Hypertension 5. Hyperlipidemia 6. Nicotine dependence 7. Medical noncompliance 8. drug abuse Plan: from cardiology's perspective medications were reviewed and we will continue the same. We will continue to follow the patient with you and provide further recommendations accordingly. JANITORIAL ASSISTANT note has been reviewed, I agree with a documented findings and plan of care. Patient was seen and examined.
--- NOTE | 2020-04-21 14:02 | P.PN ---
Subjective Progress Note Date: 04/21/20 Principal diagnosis: A. fib with RVR, hypotension 59-year-old -[place] female patient with past medical history of COPD, chronic tobacco dependence, history of coronary artery disease, chronic atrial fibrillation and patient is supposed to take Xarelto however she has not taken it, history of crack cocaine abuse, ongoing, who was seen by her ict trainer Dr. Guzman in outpatient pulmonary clinic yesterday on 04/19/2020 in follow-up for recent exacerbation of COPD. Patient has had multiple hospitalizations for COPD exacerbation, most recent one in March 2020. She is usually seen by our group at the [facility]. In the last few days she developed progressive worsening shortness of breath, in the outpatient clinic she was quite tachypneic, tachycardic, with an irregular pulse, EKG was obtained showing A. fib with RVR with a heart rate of 120 BPM. In addition patient had increased dyspnea, cough, chest tightness and wheezing, and was not able to complete full sentences. She denied any chest pressure, no syncope, no hemoptysis. She had been tested for COVID 19 on an outpatient basis and was found to be negative. Her most recent spirometry from 03/28/2020 showed FEV1 of 2.4 L or 79% of predicted, with FVC of 4.23 L or 108% of predicted. Patient was sent to the emergency department for evaluation and treatment, EKG showed A. fib RVR with a rate of 119 BPM, chest x-ray showed emphysematous changes including biapical blebs and bulla but no acute cardiopulmonary process. She was hypotensive in the emergency department with a blood pressure 79/33, related to A. fib RVR, she was given 1 L in fluid boluses, and maintenance IV was started at 120 ML per hour and apparently patient spontaneously converted back to sinus rhythm in the emergency department, she was started on IV heparin for anticoagulation. She was started on empiric antibiotics and steroids and bronchodilators, she is doing better, currently on 3 L of oxygen pulse ox 96%, afebrile. In sinus mechanism with a controlled rate, cardiology is following. Echo showed EF of greater than 55%, no aortic stenosis or regurgitation, mild MR, mild TR, PA systolic is less than 35 mmHg, no pericardial effusion, from pulmonary perspective, patient has some mild wheezing, not significantly congested or bronchospastic. She admits that she is still doing some crack cocaine and still smoking. Appears to be an acute distress, clinically doing much better today. The patient is seen today 04/21/2020 in follow-up on the selective care unit. She is awake and alert in no acute distress. Resting quite comfortably in bed. No worsening shortness of breath, cough or congestion. No chest pain or palpitations. Currently maintaining O2 saturations up to 100% on room air. She's afebrile. Currently in sinus rhythm. Hemodynamically stable. Continued on DuoNeb inhalations, prednisone. Anticoagulated with Eliquis. Objective - Vital Signs Vital signs: Vital Signs Temp 98.2 F 04/21/20 08:00 Pulse 64 04/21/20 08:00 Resp 20 04/21/20 08:00 BP 116/72 04/21/20 08:00 Pulse Ox 94 L 04/21/20 08:00 Intake & Output 04/20/20 04/21/20 04/21/20 18:59 06:59 18:59 Intake Total 1200 302 Output Total 500 Balance 700 302 Weight 103 kg Intake: Oral 1200 302 Output: Urine 500 Other: Voiding Method Toilet # Voids 2 1 2 # Bowel Movements 1 - Exam GENERAL EXAM: Alert, very pleasant, 59-year-old -[place] female, on room air, comfortable in no apparent distress. HEAD: Normocephalic/atraumatic. EYES: Normal reaction of pupils, equal size. Conjunctiva pink, sclera white. NOSE: Clear with pink turbinates. THROAT: No erythema or exudates. NECK: No masses, no JVD, no thyroid enlargement, no adenopathy. CHEST: No chest wall deformity. Symmetrical expansion. LUNGS: Equal air entry with mild wheezing, good air entry bilaterally, no significant rhonchi CVS: Regular rate and rhythm, normal S1 and S2, no gallops, no murmurs, no rubs ABDOMEN: Soft, nontender. No hepatosplenomegaly, normal bowel sounds, no guarding or rigidity. EXTREMITIES: No clubbing, no edema, no cyanosis, 2+ pulses and upper and lower extremities. MUSCULOSKELETAL: Muscle strength and tone normal. SPINE: No scoliosis or deformity SKIN: No rashes CENTRAL NERVOUS SYSTEM: Alert and oriented -3. No focal deficits, tone is normal in all 4 extremities. PSYCHIATRIC: Alert and oriented -3. Appropriate affect. Intact judgment and insight. - Labs CBC & Chem 7: 04/19/20 13:56 04/20/20 05:14 Assessment and Plan Assessment: #1. acute hypoxic respiratory failure related to acute exacerbation of COPD #2. A. fib with rapid ventricular response, currently in sinus mechanism with a controlled rate #3. hypotension related to A. fib RVR, responded well to fluid boluses, blood pressure improved after conversion to sinus mechanism #4. Chronic and ongoing history of smoking, carries a [id number] smoking history #5. Chronic and ongoing history of drug abuse, patient admits to crack cocaine use #6. History of paroxysmal atrial fibrillation, noncompliant with anticoagulation, status post permanent pacemaker implantation #7. GERD/reflux #8. Chronic obstructive pulmonary disease with most recent spirometry showed F EV1 of 79% of predicted, consistent with mild to moderate obstruction. previous PFTs showed FEV1 of 66% of predicted, with diffusion capacity of 44% of predicted. patient is maintained on a combination of Symbicort and INcruz #9. Coronary artery disease with previous PCI and stenting #10. Depression Plan: The patient was seen and evaluated by Dr. Gilda Mccormick from the pulmonary standpoint Anticoagulated with Eliquis Educated regarding the importance of complete smoking cessation Educated regarding the importance of complete drug cessation Follow-up in the office in 1-2 weeks' time I, the cosigning physician, performed a history & physical examination of the patient. Lungs sounds with mild end expiratory wheeze, diminished. Maintaining good O2 saturations in the 90s on room air. I discussed the assessment and plan of care with my nurse practitioner, Vivienne Lou. I attest to the above note as dictated by her.
[2020-04-21] MEDS: ATORVASTATIN 80 MG TAB PO SCH (20:34)
[2020-04-22] MEDS: IPRATROPIUM-ALBUTEROL 3 ML NEB INHALATION SCH ×2 (08:10→11:25)
[2020-04-22] MEDS: ARIPiprazole 10 MG TAB PO SCH (08:52)
[2020-04-22] MEDS: AZITHROMYCIN 500 MG TAB PO SCH (08:52)
[2020-04-22] MEDS: APIXABAN 5 MG TAB PO SCH (08:52)
[2020-04-22] MEDS: METOPROLOL SUCCINATE (ER) 100 MG TAB.ER.24H PO SCH (08:53)
[2020-04-22] MEDS: FLUoxetine HCL 20 MG CAP PO SCH (08:53)
[2020-04-22] MEDS: predniSONE 20 MG TAB PO SCH (08:53)
[2020-04-22] MEDS: PREGABALIN 75 MG CAP PO SCH (08:53)
[2020-04-22] MEDS: PANTOPRAZOLE 40 MG TABLET PO SCH (08:53)
[2020-04-22 09:01] VITALS: BP 105/64; RESP 20; TEMP 98.3
[2020-04-22 11:35] VITALS: PULSE 73
--- NOTE | 2020-04-22 12:22 | P.PN ---
Subjective Progress Note Date: 04/21/20 Principal diagnosis: A. fib with RVR Acute COPD exacerbation Mrs. Mcdaniels is a 59-year-old female with a past medical history of congestive heart failure, pacemaker, paroxysmal atrial fibrillation, hypertension, hyperlipidemia, cognitive impairment sent to the hospital from Dr. Guzman's office. Patient had a visit at Dr. Guzman's clinic for difficulty in breathing that has been going on for the past couple of days. She states that she was feeling more short of breath, having cough that is nonproductive in nature along with some left-sided chest discomfort. Patient has history of atrial fibrillation but does not take any anticoagulation. She was prescribed that are done and is in the past, that she does not take any more. In the ER patient had blood pressure of 79/33 with a respirator 26 and heart rate 113 EKG showing paced rhythm with heart rate of 60 and chest x-ray showing emphysema. She was given steroids and breathing treatments and admitted for further workup. As the patient has history of A. fib which was more than 48 hours, there is a concern for cardiac thrombus. The patient was started on heparin drip and admitted with cardiology and pulmonary consults. On 04/20/2020-patient is comfortably sleeping in the bed. Appears to be no acute distress. Overnight no acute issues reported by nursing staff. Patient states that her difficulty in breathing is better. Patient denies having any palpitations or chest discomfort. On review of systems she denies having any fevers chills or rigors. No abdominal pain nausea vomiting or diarrhea. No dysuria or hematuria. On reviewing the vitals patient's temperature 98.3, heart rate 76, respiratory rate 18 saturating at 96% on 3 L of oxygen. Patient's labs from this morning showed sodium 136, potassium 4.5 BUN 26 creatinine 1.15. 04/21/2019 Patient is currently lying in the bed comfortably. Currently saturating well on room air. No complaints of chest pain Otherwise patient is still having exertional dyspnea and wheezing on examination. No fever no chills. Currently maintaining sinus rhythm. Patient is being continued on anticoagulation in the form of Eliquis. Cardiology and pulmonary is following. Current medications reviewed. Objective - Vital Signs Vital signs: Vital Signs Temp 98.2 F 04/21/20 08:00 Pulse 58 L 04/21/20 16:00 Resp 20 04/21/20 16:00 BP 129/75 04/21/20 16:00 Pulse Ox 91 L 04/21/20 16:00 Intake & Output 04/21/20 04/21/20 04/22/20 06:59 18:59 06:59 Intake Total 422 Balance 422 Weight 103 kg Intake: Oral 422 Other: Voiding Method Toilet # Voids 1 2 - Exam PHYSICAL EXAMINATION: GENERAL: Speech is stuttered, appears to be no acute distress. HEENT: Pupils are round and equally reacting to light. EOMI. no scleral icterus. No conjunctival pallor. Normocephalic, atraumatic. CARDIOVASCULAR: Paced rhythm S 1 , S 2 heard . No additional sounds. PULMONARY: Diminished breath sounds bilaterally at the lower lung garner. And bilateral diffuse wheezing. ABDOMEN: Soft, nontender, nondistended, normoactive bowel sounds. No palpable organomegaly. MUSCULOSKELETAL: No joint swelling or deformity EXTREMITIES: No cyanosis, clubbing, mild pedal edema. NEUROLOGICAL: Alert awake oriented 2-3, Gross neurological examination did not reveal any focal deficits. SKIN: No rash - Labs CBC & Chem 7: 04/19/20 13:56 04/20/20 05:14 Assessment and Plan Assessment: A. fib with RVR Acute COPD exacerbation Hypotension - probably due to A. fib Acute kidney injury Systolic congestive heart failure with ejection fraction of 40-45% Pacemaker in place History of atrial fibrillation not on anticoagulation Hypertension Hyperlipidemia Dysarthria Cognitive impairment History of depression Nicotine dependence History of substance abuse PLAN: Patient is started on a heparin drip for concerns of atrial thrombus, changed to Eliquis by Cardiology. Patient has been started on breathing treatments and steroids along with azithromycin for COPD exacerbation. Echocardiogram showing EF > 55 %. Patient has aspirin listed as a home medication. This does not need to be resumed and should be discontinued at discharge as per Cardiology recommendations. Further recommendations to follow depending on the progress of the patient. Time with Patient: Greater than 30
--- NOTE | 2020-04-22 12:44 | P.PN ---
Subjective Progress Note Date: 04/22/20 Principal diagnosis: A. fib with RVR, hypotension 59-year-old -[place] female patient with past medical history of COPD, chronic tobacco dependence, history of coronary artery disease, chronic atrial fibrillation and patient is supposed to take Xarelto however she has not taken it, history of crack cocaine abuse, ongoing, who was seen by her shactor Dr. Guzman in outpatient pulmonary clinic yesterday on 04/19/2020 in follow-up for recent exacerbation of COPD. Patient has had multiple hospitalizations for COPD exacerbation, most recent one in March 2020. She is usually seen by our group at the [facility]. In the last few days she developed progressive worsening shortness of breath, in the outpatient clinic she was quite tachypneic, tachycardic, with an irregular pulse, EKG was obtained showing A. fib with RVR with a heart rate of 120 BPM. In addition patient had increased dyspnea, cough, chest tightness and wheezing, and was not able to complete full sentences. She denied any chest pressure, no syncope, no hemoptysis. She had been tested for COVID 19 on an outpatient basis and was found to be negative. Her most recent spirometry from 03/28/2020 showed FEV1 of 2.4 L or 79% of predicted, with FVC of 4.23 L or 108% of predicted. Patient was sent to the emergency department for evaluation and treatment, EKG showed A. fib RVR with a rate of 119 BPM, chest x-ray showed emphysematous changes including biapical blebs and bulla but no acute cardiopulmonary process. She was hypotensive in the emergency department with a blood pressure 79/33, related to A. fib RVR, she was given 1 L in fluid boluses, and maintenance IV was started at 120 ML per hour and apparently patient spontaneously converted back to sinus rhythm in the emergency department, she was started on IV heparin for anticoagulation. She was started on empiric antibiotics and steroids and bronchodilators, she is doing better, currently on 3 L of oxygen pulse ox 96%, afebrile. In sinus mechanism with a controlled rate, cardiology is following. Echo showed EF of greater than 55%, no aortic stenosis or regurgitation, mild MR, mild TR, PA systolic is less than 35 mmHg, no pericardial effusion, from pulmonary perspective, patient has some mild wheezing, not significantly congested or bronchospastic. She admits that she is still doing some crack cocaine and still smoking. Appears to be an acute distress, clinically doing much better today. The patient is seen today 04/21/2020 in follow-up on the selective care unit. She is awake and alert in no acute distress. Resting quite comfortably in bed. No worsening shortness of breath, cough or congestion. No chest pain or palpitations. Currently maintaining O2 saturations up to 100% on room air. She's afebrile. Currently in sinus rhythm. Hemodynamically stable. Continued on DuoNeb inhalations, prednisone. Anticoagulated with Eliquis. The patient is seen today 04/22/2020 in follow-up on the selective care unit. She is resting quite comfortably in bed. Awake and alert in no acute distress. She denies any shortness of breath, cough or congestion. No chest pain or palpitations. Maintaining good O2 saturations in the mid 90s on room air. She's afebrile. Hemodynamically stable. Maintaining sinus rhythm. She's been initiated on Eliquis. Objective - Vital Signs Vital signs: Vital Signs Temp 98.3 F 04/22/20 08:00 Pulse 73 04/22/20 11:34 Resp 20 04/22/20 08:00 BP 105/64 04/22/20 08:00 Pulse Ox 95 04/22/20 08:00 Intake & Output 04/21/20 04/22/20 04/22/20 18:59 06:59 18:59 Intake Total 422 118 Balance 422 118 Weight 102.6 kg Intake: Oral 422 118 Other: Voiding Method Toilet # Voids 2 3 1 - Exam GENERAL EXAM: Alert, very pleasant, 59-year-old -[place] female, on room air, comfortable in no apparent distress. HEAD: Normocephalic/atraumatic. EYES: Normal reaction of pupils, equal size. Conjunctiva pink, sclera white. NOSE: Clear with pink turbinates. THROAT: No erythema or exudates. Poor dentition. NECK: No masses, no JVD, no thyroid enlargement, no adenopathy. CHEST: No chest wall deformity. Symmetrical expansion. LUNGS: Equal air entry with mild wheezing, good air entry bilaterally, no significant rhonchi CVS: Regular rate and rhythm, normal S1 and S2, no gallops, no murmurs, no rubs ABDOMEN: Soft, nontender. No hepatosplenomegaly, normal bowel sounds, no guarding or rigidity. EXTREMITIES: No clubbing, no edema, no cyanosis, 2+ pulses and upper and lower extremities. MUSCULOSKELETAL: Muscle strength and tone normal. SPINE: No scoliosis or deformity SKIN: No rashes CENTRAL NERVOUS SYSTEM: Alert and oriented -3. No focal deficits, tone is normal in all 4 extremities. PSYCHIATRIC: Alert and oriented -3. Appropriate affect. Intact judgment and insight. - Labs CBC & Chem 7: 04/19/20 13:56 04/20/20 05:14 Assessment and Plan Assessment: #1. Acute hypoxic respiratory failure related to acute exacerbation of COPD #2. Atrial fibrillation with rapid ventricular response, currently in sinus mechanism with a controlled rate #3. Hypotension related to A. fib RVR, responded well to fluid boluses, blood pressure improved after conversion to sinus mechanism #4. Chronic and ongoing history of smoking, carries a [id number] smoking history #5. Chronic and ongoing history of drug abuse, patient admits to crack cocaine use #6. History of paroxysmal atrial fibrillation, noncompliant with anticoagulation, status post permanent pacemaker implantation #7. GERD/reflux #8. Chronic obstructive pulmonary disease with most recent spirometry showed FEV1 of 79% of predicted, consistent with mild to moderate obstruction. previous PFTs showed FEV1 of 66% of predicted, with diffusion capacity of 44% of predicted. patient is maintained on a combination of Symbicort and INcruz #9. Coronary artery disease with previous PCI and stenting #10. Depression Plan: The patient was seen and evaluated by Dr. Vo Cleared for discharge from the pulmonary standpoint Anticoagulated with Eliquis Educated regarding the importance of complete smoking cessation Educated regarding the importance of complete drug cessation Follow-up in the office with Dr. Guzman in 1-2 weeks' time I, the cosigning physician, performed a history & physical examination of the patient. Lungs sounds with mild end expiratory wheeze, diminished. Maintaining good O2 saturations in the 90s on room air. I discussed the assessment and plan of care with my nurse practitioner, Vivienne Lou. I attest to the above note as dictated by her.
--- NOTE | 2020-04-22 15:59 | PN ---
PROGRESS NOTE Mrs. Mcdaniels is a 60-year-old female with known history of severe chronic obstructive lung disease, history of paroxysmal atrial fibrillation. She is feeling better this morning. She has a permanent pacemaker implantation. Her breathing is better. She denies any dizziness. She denies any palpitation. She denies any nausea. She continues to be at this time on Eliquis 5 mg twice a day, Lipitor 80 mg daily, metoprolol succinate 100 mg daily and tapering dose of prednisone. PHYSICAL EXAMINATION: Blood pressure 105/60 with a heart in the 70s. LUNGS: With decreased air exchange, no wheezes. HEART: Regular rate and rhythm S1, S2. No S3. No rub. ABDOMEN: Soft and nontender. EXTREMITIES: No edema. IMPRESSION: 1. Exacerbation of chronic obstructive pulmonary disease. 2. Paroxysmal atrial fibrillation, back in sinus mechanism. 3. Status post permanent pacemaker implantation. 4. Medical noncompliance. RECOMMENDATION: I have discussed with the patient again the importance of compliance. She should be able to be discharged home today and follow with Dr. Abad as an outpatient. MMODL / IJN: [id number] /
--- NOTE | 2020-05-07 00:37 | P.DS ---
Providers Date of admission: 04/19/20 15:04 Expected date of discharge: 04/22/20 Attending physician: Deborah Cross Consults: 04/19/20 14:43 Consult Physician Routine Consulting Provider: Agnieszka Guzman Consult Reason/Comments: copd Do you want consulting provider notified?: Yes Consult Physician Routine Consulting Provider: Henok Galvan Consult Reason/Comments: afib, cardiac thrombus? Do you want consulting provider notified?: Yes Primary care physician: Malu Dillard Hospital Course: Discharge diagnosis A. fib with RVR Acute COPD exacerbation Hypotension - probably due to A. fib Acute kidney injury Systolic congestive heart failure with ejection fraction of 40-45% Pacemaker in place History of atrial fibrillation not on anticoagulation Hypertension Hyperlipidemia Dysarthria Cognitive impairment History of depression Nicotine dependence History of substance abuse Hospital course Mrs. Mcdaniels is a 59-year-old female with a past medical history of congestive heart failure, pacemaker, paroxysmal atrial fibrillation, hypertension, hyperlipidemia, cognitive impairment sent to the hospital from Dr. Guzman's office. Patient had a visit at Dr. Guzman's clinic for difficulty in breathing that has been going on for the past couple of days. She states that she was feeling more short of breath, having cough that is nonproductive in nature along with some left-sided chest discomfort. Patient has history of atrial fibrillation but does not take any anticoagulation. She was prescribed that are done and is in the past, that she does not take any more. In the ER patient had blood pressure of 79/33 with a respirator 26 and heart rate 113 EKG showing paced rhythm with heart rate of 60 and chest x-ray showing emphysema. She was given steroids and breathing treatments and admitted for further workup. As the patient has history of A. fib which was more than 48 hours, there is a concern for cardiac thrombus. The patient was started on heparin drip and admitted with cardiology and pulmonary consults. On 04/20/2020-patient is comfortably sleeping in the bed. Appears to be no acute distress. Overnight no acute issues reported by nursing staff. Patient states that her difficulty in breathing is better. Patient denies having any palpitations or chest discomfort. On review of systems she denies having any fevers chills or rigors. No abdominal pain nausea vomiting or diarrhea. No dysuria or hematuria. On reviewing the vitals patient's temperature 98.3, heart rate 76, respiratory rate 18 saturating at 96% on 3 L of oxygen. Patient's labs from this morning showed sodium 136, potassium 4.5 BUN 26 creatinine 1.15. 04/21/2019 Patient is currently lying in the bed comfortably. Currently saturating well on room air. No complaints of chest pain Otherwise patient is still having exertional dyspnea and wheezing on examination. No fever no chills. Currently maintaining sinus rhythm. Patient is being continued on anticoagulation in the form of Eliquis. Cardiology and pulmonary is following. 04/22/2020 Patient is currently lying in the bed comfortably. No complaints of chest pain or worsening shortness breath. Breathing status is much improved. Currently on room air. No complaints of chest pain. Maintained in sinus rhythm. Patient is being discharged home with anticoagulation with Eliquis. Cleared from pulmonary and cardiology standpoint. PHYSICAL EXAMINATION: GENERAL: Speech is stuttered, appears to be no acute distress. HEENT: Pupils are round and equally reacting to light. EOMI. no scleral icterus. No conjunctival pallor. Normocephalic, atraumatic. CARDIOVASCULAR: Paced rhythm S 1 , S 2 heard . No additional sounds. PULMONARY: Diminished breath sounds bilaterally at the lower lung garner. And bilateral diffuse wheezing. ABDOMEN: Soft, nontender, nondistended, normoactive bowel sounds. No palpable organomegaly. MUSCULOSKELETAL: No joint swelling or deformity EXTREMITIES: No cyanosis, clubbing, mild pedal edema. NEUROLOGICAL: Alert awake oriented 2-3, Gross neurological examination did not reveal any focal deficits. SKIN: No rash - Vital Signs Vital signs: Vital Signs Temp 98.3 F 04/22/20 08:00 Pulse 73 04/22/20 11:34 Resp 20 04/22/20 08:00 BP 105/64 04/22/20 08:00 Pulse Ox 95 04/22/20 08:00 Intake & Output 04/21/20 04/22/20 04/22/20 18:59 06:59 18:59 Intake Total 422 118 Balance 422 118 Weight 102.6 kg Intake: Oral 422 118 Other: Voiding Method Toilet # Voids 2 3 1 Patient Condition at Discharge: Fair Plan - Discharge Summary New Discharge Prescriptions: New Azithromycin [Zithromax] 500 mg PO DAILY@1500 #3 tab predniSONE See Taper PO DIRECTED #30 tab Nicotine 14Mg/24Hr Patch [Habitrol] 1 patch TRANSDERM DAILY #30 patch Continue Albuterol Nebulized [Ventolin Nebulized] 2.5 mg INHALATION RT-QID PRN PRN Reason: Shortness Of Breath Acetaminophen [Acetaminophen 8 Hour] 1,300 mg PO TID PRN PRN Reason: Pain predniSONE 10 mg PO DAILY Pregabalin [Lyrica] 150 mg PO BID Pantoprazole [Protonix] 40 mg PO DAILY Metoprolol Succinate (ER) [Toprol XL] 100 mg PO DAILY Ipratropium-Albuterol Nebulize [Duoneb 0.5 mg-3 mg/3 ml Soln] 3 ml INHALATION RT-QID PRN PRN Reason: Shortness Of Breath Umeclidinium [place] [Incruse Ellipta] 1 puff INHALATION DAILY FLUoxetine HCL [PROzac] 20 mg PO DAILY Apixaban [Eliquis] 5 mg PO BID Albuterol Inhaler [Ventolin Hfa Inhaler] 2 puff INHALATION RT-QID ARIPiprazole [Abilify] 10 mg PO DAILY Discontinued Aspirin 325 mg PO DAILY Baclofen 10 mg PO TID Discharge Medication List Albuterol Nebulized [Ventolin Nebulized] 2.5 mg INHALATION RT-QID PRN 11/17/16 [History] ARIPiprazole [Abilify] 10 mg PO DAILY 04/19/20 [History] Acetaminophen [Acetaminophen 8 Hour] 1,300 mg PO TID PRN 04/19/20 [History] Albuterol Inhaler [Ventolin Hfa Inhaler] 2 puff INHALATION RT-QID 04/19/20 [History] Apixaban [Eliquis] 5 mg PO BID 04/19/20 [History] FLUoxetine HCL [PROzac] 20 mg PO DAILY 04/19/20 [History] Ipratropium-Albuterol Nebulize [Duoneb 0.5 mg-3 mg/3 ml Soln] 3 ml INHALATION RT-QID PRN 04/19/20 [History] Metoprolol Succinate (ER) [Toprol XL] 100 mg PO DAILY 04/19/20 [History] Pantoprazole [Protonix] 40 mg PO DAILY 04/19/20 [History] Pregabalin [Lyrica] 150 mg PO BID 04/19/20 [History] Umeclidinium [place] [Incruse Ellipta] 1 puff INHALATION DAILY 04/19/20 [History] predniSONE 10 mg PO DAILY 04/19/20 [History] Azithromycin [Zithromax] 500 mg PO DAILY@1500 #3 tab 04/22/20 [Rx] Nicotine 14Mg/24Hr Patch [Habitrol] 1 patch TRANSDERM DAILY #30 patch 04/22/20 [Rx] predniSONE See Taper PO DIRECTED #30 tab 04/22/20 [Rx] Follow up Appointment(s)/Referral(s): Ksenia Vo MD [STAFF PHYSICIAN] - 1 Week Nonstaff,Physician [REFERRING] - 1-2 days Patient Instructions/Handouts: A-fib (Atrial Fibrillation) (DC), COPD (Chronic Obstructive Pulmonary Disease) (ED), Safe Use of Anticoagulants (DC) Discharge Disposition: HOME SELF-CARE
== END 2020-04-22 14:23 | disposition home or self-care (01) ==
LOC: EC 13:25 → 3SCARD 15:04
PROVIDERS: ADMIT Internal Medicine; ATTEND Internal Medicine
DX: J43.9 Emphysema, unspecified (principal); J96.01 Acute respiratory failure with hypoxia; E78.5 Hyperlipidemia, unspecified; E86.0 Dehydration; E87.2 Acidosis; F17.200 Nicotine dependence, unspecified, uncomplicated; F32.9 Major depressive disorder, single episode, unspecified; I50.22 Chronic systolic (congestive) heart failure; I11.0 Hypertensive heart disease with heart failure; I25.10 Atherosclerotic heart disease of native coronary artery without angina pectoris; I25.2 Old myocardial infarction; I48.0 Paroxysmal atrial fibrillation; I48.20 Chronic atrial fibrillation, unspecified; K21.9 Gastro-esophageal reflux disease without esophagitis; N17.9 Acute kidney failure, unspecified; Z79.01 Long term (current) use of anticoagulants; Z79.82 Long term (current) use of aspirin; Z79.899 Other long term (current) drug therapy; Z91.14 Patient's other noncompliance with medication regimen; Z91.19 Patient's noncompliance with other medical treatment and regimen; Z95.0 Presence of cardiac pacemaker; Z95.5 Presence of coronary angioplasty implant and graft; I95.9 Hypotension, unspecified; R41.89 Other symptoms and signs involving cognitive functions and awareness; F14.90 Cocaine use, unspecified, uncomplicated; Z71.6 Tobacco abuse counseling
CPT/HCPCS: 96366 ×2; 93005 ×2; 96376; 96361; 96365; 96375; 99291; 36415; 94640 ×6; 93306; 80053; 80048; 83735; 84443; 84484; 85025; 85610; 85730 ×2; 71045; G0378 ×4; J1644 ×2; J1100; J7512 ×3